=== PATIENT | female | born 1970 | race Caucasian/White ===

== ENCOUNTER 2016-08-23 09:28 | Emergency (ER) | payer OTHER ==
[~2016-08-23] VITALS: Ht 162.6 cm; Wt 100.0 kg
[2016-08-23 09:29] VITALS: BP 162/103; PULSE 88; RESP 16; TEMP 98; O2SAT 98
[2016-08-23] MEDS ORDERED: PRED20 PO (10:08)
[2016-08-23] MEDS ORDERED: NORC5TAB PO (10:08)
[2016-08-23] MEDS ORDERED: IBUP800T23 PO (10:10)
[2016-08-23] MEDS ORDERED: PANT20 PO (10:10)
[2016-08-23] MEDS ORDERED: AMBI10TA PO (10:10)
[2016-08-23] MEDS ORDERED: AMLO10 PO (10:12)
--- NOTE | 2016-08-23 11:23 | PD ---
HPI Chief Complaint: Pain: Acute or Chronic Time Seen by Provider: 11:21 Travel History International Travel<30 days: No Contact w/Intl Traveler<30days: No Traveled to known affect area: No History of Present Illness HPI 46-year-old female with history of lupus presents to the emergency brought in for evaluation of bilateral knee pain. Patient states that she had a reaction to Plaquenil and her physician from [id number] placed her on steroids. She is on a taper down dose. States she has been having bilateral knee pain for the last day. Patient took Vicodin but states that she needs something stronger. Denies any fever or chills. No trauma. No other symptoms to report. PFSH Past Medical History Autoimmune Disease: Yes Respiratory: Yes ?: Not Social History Alcohol Use: Yes Tobacco Use: Yes Allergies-Medications (Allergen,Severity, Reaction): Coded Allergies: Ampicillin (Verified Allergy, Severe, Anaphylaxis, 08/23/16) Sulfa (Verified Allergy, Unknown, Anaphylaxis, 08/23/16) Reported Meds & Prescriptions Reported Meds & Active Scripts Active Tramadol (Tramadol HCl) 50 Mg Tab 50 Mg PO Q6H PRN Reported Norvasc (Amlodipine Besylate) 10 Mg Tab 10 Mg PO DAILY Ambien (Zolpidem Tartrate) 10 Mg Tab 10 Mg PO HS PRN Ibuprofen 800 Mg Tab 800 Mg PO Q6HR PRN Protonix (Pantoprazole Sodium) 20 Mg Tab 20 Mg PO DAILY Prednisone 20 Mg Tab 20 Mg PO DIRECTED 40 MG twice a day x 3 days, then 20 MG daily x 3 days, then 10 MG daily x 3 days Powderly (Hydrocodone-Acetaminophen) 5-325 mg Tab 1 Tab PO Q6H PRN Review of Systems Except as stated in HPI: all other systems reviewed are Neg Physical Exam Narrative GENERAL: Well-nourished female patient, ambulatory with a nonantalgic gait no acute distress SKIN: Warm and dry. HEAD: Atraumatic. Normocephalic. EYES: Pupils equal and round. No scleral icterus. No injection or drainage. ENT: No nasal bleeding or discharge. Mucous membranes pink and moist. NECK: Trachea midline. No JVD. CARDIOVASCULAR: Regular rate and rhythm. No murmur appreciated. RESPIRATORY: No accessory muscle use. Clear to auscultation. Breath sounds equal bilaterally. GASTROINTESTINAL: Abdomen soft, non-tender, nondistended. Hepatic and splenic margins not palpable. MUSCULOSKELETAL: No obvious deformities. No clubbing. No cyanosis. No edema. Full flexion and extension of the bilateral knees. Arul's test is negative bilaterally. There is no laxity with valgus or varus stress. Distal pulses are palpable. Cap refill is within normal limits. NEUROLOGICAL: Awake and alert. No obvious cranial nerve deficits. Motor grossly within normal limits. Normal speech. Data Data Last Documented VS Vital Signs Date Time Temp Pulse Resp B/P Pulse Ox O2 Delivery O2 Flow Rate FiO2 08/23/16 11:41 88 20 156/90 99 08/23/16 09:29 98.0 Orders Ketorolac Inj (Toradol Inj) (08/23/16 11:30) [facility] Medical Decision Making Medical Screen Exam Complete: Yes Emergency Medical Condition: Yes Medical Record Reviewed: Yes Differential Diagnosis Osteoarthritic pain versus autoimmune disease versus effusion versus neuralgia Narrative Course 46 year-old female presents to emergency department for evaluation of bilateral knee pain. Patient appears well and without distress. She is ambulatory. There are no acute findings on physical examination of the knee. Distal pulses are palpable. Cap refill is within normal limits. Patient is already on steroids. I'll give her some additional pain control but strongly encouraged follow-up with her primary care provider. She agrees to return immediately with any acute worsening of symptoms. Diagnosis Primary Impression: Bilateral knee pain Qualified Code: M25.561 - Pain in both knees, unspecified chronicity Referrals: Primary Care Physician Patient Instructions: General Instructions, Knee Pain (ED) Additional Instructions: Ice and or warm moist heat may help to alleviate symptoms Follow up with your primary care provider Continue medication as already prescribed Return to ED with acute worsening of symptoms Med/Other Pt SpecificInfo: Prescription(s) given Scripts Tramadol 50 Mg Tab50 Mg PO Q6H PRN (PAIN GREATER THAN 6) #20 TAB Ref 0 Prov:Dieter Burr MD 08/23/16 Disposition: 01 DISCHARGE HOME Condition: Stable Eliana Owens Aug 23, 2016 11:23
[2016-08-23] MEDS ORDERED: TRAM50TA PO (11:24)
[2016-08-23] MEDS ORDERED: KETOROLAC TROMETHAMINE 60 MG/2 ML (IM) VIAL IM ONE (11:30)
[2016-08-23 11:41] VITALS: BP 156/90
== END 2016-08-23 11:42 | disposition home or self-care (01) ==
LOC: NEPB 09:28
DX: M25.561 Pain in right knee (principal); M25.562 Pain in left knee; M32.9 Systemic lupus erythematosus, unspecified; Z72.0 Tobacco use
CPT/HCPCS: 96372; 99283; J1885